=== PATIENT | female | born 1955 | race Two or more races ===

== ENCOUNTER → 2024-03-20 | Outpatient (CLI) | payer OTHER, MEDICAID, SELFPAY ==
--- NOTE | 2024-03-20 14:00 | XR_ITS ---
Examination: Bone densitometry Date and time of exam:March 20, 2024 1354 hours INDICATIONS: Menopause age 48 calcium one year Technique: Lumbar spine and hip total bone mineralization values of an calculated. Peak reference and age match control results have been displayed. Findings: Lumbar spine total bone mineralization is0.992 gm/cm2. This is 0.5 standard deviations below peak reference. This is 1.6 standard deviations above age-matched controls. Hip total bone mineralization is 0.985 gm/cm2 This is 0.2 standard deviations above peak reference. This is 1.6 standard deviations above age-matched controls Impression: There is normal mineralization based on lumbar spine measurements. There is osteopenia based on hip measurements Lumbar mineralization is decreased 3.5% compared with November 18, 2021 Hip mineralization is decreased 3.3% compared with November 18, 2021
== END | disposition home or self-care (01) ==
LOC: CDIM 13:37
PROVIDERS: Referring Provider Family Medicine; Visit Provider Family Medicine
DX: M85.88 Other specified disorders of bone density and structure, other site (principal)
CPT/HCPCS: 77080

== ENCOUNTER → 2024-08-09 | Outpatient (CLI) | payer MEDICARE, SELFPAY ==
--- NOTE | 2024-08-09 08:30 | XR_ITS ---
Examination: Screening digital mammography, bilateral Computer aided detection 3-D breast Tomosynthesis, bilateral Date and time of exam: August 09, 2024 0811 hours Compared to mammograms dating to October 13, 2020 Indication: Screening Technique: Nonmagnified MLO, CC views of the breasts to been obtained, reconstructed from 3-D Tomosynthesis images. R2 computer aided detection program utilized for evaluation of suspicious masses and/or abnormal calcifications. 3-D Tomosynthesis images obtained. Findings: Scattered areas of fibroglandular density. Benign calcifications. No interval suspicious masses Impression: BI-RADS category II: Benign Findings. Recommend 1 year follow-up mammogram.
[2024-08-09 09:26] LABS: Collection Type, Urine Clean Catch
[2024-08-09 10:07] LABS: Basophils # (Auto) 0.1 Thou/mm3 (0.0-0.2); Basophils % (Auto) 1 % (0-2.5); Eosinophils # (Auto) 0.1 Thou/mm3 (0.0-0.5); Eosinophils % (Auto) 2 % (0-10); Hematocrit 41.3 % (36.0-46.0); Hemoglobin 13.7 g/dL (12.0-16.0); Immature Granulocytes % (Auto) 1 % (0-0); Immature Granulocytes Auto 0.05 Thou/mm3 (0.00-0.00); Lymphocytes # (Auto) 2.6 Thou/mm3 (1.0-4.8); Lymphocytes % (Auto) 41 % (10-50); Mean Corpuscular HGB Conc 33.2 g/dl (31.0-37.0); Mean Corpuscular Hemoglobin 29.9 pg (25.0-35.0); Mean Corpuscular Volume 90 fL (80-100); Monocytes # (Auto) 0.5 Thou/mm3 (0.0-0.8); Monocytes % (Auto) 8 % (0-12); Neutrophils % (Auto) 47 % (37-80); Nucleated Red Blood Cell % 0 /100 WBC (0); Platelet Count 230 Thou/mm3 (140-440); Red Blood Count 4.58 Miln/mm3 (4.00-5.20); White Blood Count 6.3 Thou/mm3 (3.6-11.0)
[2024-08-09 10:08] LABS: Bilirubin,Urine Negative (Negative); Blood,Urine 1+ (Negative); Clarity,Urine Clear (Clear/Hazy); Color,Urine Lt-Yellow (Lt Yel-Yel); Glucose, Urine Negative (Negative); Ketones,Urine Negative (Negative); Leukocyte Esterase,Urine Positive (Negative); Nitrite,Urine Negative (Negative); Protein,Urine Negative (Neg - Trace); RBC,Urine 3 /hpf (0-3); Specific Gravity,Urine 1.018 (1.001-1.035); Squamous Epithelial Cell,Urine 2 /hpf (0-5); Urobilinogen,Urine Negative mg/dL (0.0-1.0); WBC,Urine 24 /hpf (0-5)
[2024-08-09 10:36] LABS: Alanine Aminotransferase 17 U/L (10-49); Albumin, Serum 4.4 gm/dL (3.4-4.8); Albumin/Globulin Ratio 1.3 (1.2-2.2); Alkaline Phosphatase 89 U/L (46-116); Anion Gap 7 (7-16); Aspartate Amino Transferase 22 U/L (0-34); BUN/Creatinine Ratio 19 Ratio (12-20); Bilirubin,Total 0.6 mg/dL (0.3-1.2); Blood Urea Nitrogen 23 mg/dL (9-23); Calcium 9.6 mg/dL (8.3-10.6); Calcium (Corrected) 9.6 mg/dL (8.5-10.1); Carbon Dioxide 27.8 mMol/L (20.0-31.0); Cardiac Risk Estimate 5.9 RATIO (3.7-5.6); Chloride 106 mMol/L (98-107); Cholesterol 211 mg/dL (132-200); Creatinine (Component) 1.2 mg/dL (0.6-1.3); Globulin 3.3 gm/dL (2.3-3.5); Glucose 111 mg/dL (74-106); HDL Cholesterol 36 mg/dL (40-60); LDL Cholesterol,Calculated 124 mg/dL (0-130); Osmolality,Calculated 285 (275-295); Sodium 141 mMol/L (136-145); Thyroid Stimulating Hormone 2.32 uIU/mL (0.55-4.78); Total Protein 7.7 gm/dL (5.7-8.2); Triglycerides 257 mg/dL (30-150); eGFR 49 See Note
== END | disposition home or self-care (01) ==
LOC: CDIM 08:02 → COPL 08:19
PROVIDERS: Referring Provider Family Medicine; Visit Provider Radiology Diagnostic Radiology
DX: Z12.31 Encounter for screening mammogram for malignant neoplasm of breast (principal); R92.8 Other abnormal and inconclusive findings on diagnostic imaging of breast; R92.323 Mammographic fibroglandular density, bilateral breasts; Z00.00 Encounter for general adult medical examination without abnormal findings; E78.2 Mixed hyperlipidemia; I10 Essential (primary) hypertension
CPT/HCPCS: 36415; 77063; 77067; 80053; 80061; 81001; 84443; 85025

== ENCOUNTER 2024-09-19 10:34 | Emergency (ER) | payer OTHER, SELFPAY ==
[2024-09-19 10:35] VITALS: BMI 25.9
[2024-09-19 10:43] VITALS: BP 138/81; PULSE 86; RESP 16; TEMP 36.7; O2SAT 97
--- NOTE | 2024-09-19 10:53 | XR_ITS ---
Examination: Knee, right , 3 views Technique: Knee AP, lateral, oblique 3 views Date and time of exam: September 20, 2019 5:11 AM INDICATIONS: Sudden onset knee pain beginning one month ago. FINDINGS: Moderate osteopenia Moderate knee effusion No fracture Mild narrowing medial patellofemoral joints IMPRESSION: Mild narrowing medial patellofemoral joints
[2024-09-19] MEDS: KETOROLAC INJ 60 MG/2 ML VIAL 30 MG IM (10:57)
[2024-09-19] MEDS: ACETAMINOPHEN 325 MG TABLET 650 MG PO (10:58)
--- NOTE | 2024-09-19 11:08 | PD.EDLOWEX ---
Lower Extremity Injury RME/HPI General Chief Complaint: Extremity Injury, Lower Stated Complaint: R) KNEE PAIN X 1 MO Time Seen by Provider: 09/19/24 10:39 Arrival date/time: 09/19/24 10:34 Limitations: language barrier RME / HPI RME / HPI Narrative: 68-year-old female brought in by granddaughter for evaluation of right knee pain x 1 month. She reports sudden onset of pain after holding it in flexion on the couch and stepping offf onto the floor approximately x 4 weeks ago. Since that time she notes persistent pain that is worse with ambulation. She denies fall, head trauma, LOC, blunt trauma, prior knee injury, prior surgery. She reports taking ibuprofen daily with some improvement in her symptoms. Patient denies additional injury. MD complaint: knee injury Type of Injury: unknown Place: home Severity: moderate Exacerbating factors: nothing Other symptoms: none Related Data Home Medications ?Medication ?Instructions ?Recorded ?Confirmed amitriptyline 25 mg tablet 25 mg PO QPM 05/03/21 05/03/21 calcium 600 mg capsule 600 mg PO BID 05/03/21 05/03/21 gemfibrozil 600 mg tablet 600 mg PO BID 05/03/21 05/03/21 lisinopril 5 mg tablet 5 mg PO QDAY 05/03/21 05/03/21 loratadine 10 mg tablet 10 mg PO QDAY 05/03/21 05/03/21 tramadol 50 mg tablet 50 mg PO PRN PRN Pain 05/03/21 05/03/21 Previous Rx's ?Medication ?Instructions ?Recorded ibuprofen 600 mg tablet 600 mg PO Q6H #30 tabs 07/06/22 Allergies Allergy/AdvReac Type Severity Reaction Status Date / Time No Known Allergies Allergy Verified 09/19/24 10:38 Review of Systems Constitutional Constitutional: Denies chills, Denies fever(s), Denies frequent falls and Denies weakness Eyes Eyes: Denies blurry vision and Denies change in vision ENT Ears, Nose, Mouth, and Throat: Denies disequilibrium, Denies dizziness, Denies otalgia, Denies neck pain and Denies vertigo Cardiovascular Cardiovascular: Denies chest pain, Denies dyspnea, Denies leg edema, Denies leg ulcers and Denies lightheadedness Respiratory Respiratory: Denies cough, Denies dyspnea and Denies wheezing Gastrointestinal Gastrointestinal: Denies abdominal pain, Denies nausea and Denies vomiting Genitourinary Genitourinary: Denies dysuria and Denies urinary urgency Musculoskeletal Musculoskeletal: Reports arthralgias (right knee), Denies back pain, Denies deformity, Denies joint swelling, Reports limited range of motion (right knee. ), Denies myalgias, Denies neck pain, Denies numbness, Denies stiffness and Denies tingling Integumentary/Breasts Skin/Breast: Denies changing lesions, Denies lesions and Denies rash Neurologic Neurologic: Denies disequilibrium, Denies dizziness, Denies frequent falls, Denies numbness, Denies radicular pain, Denies tingling, Denies vertigo and Denies weakness Allergic/Immunologic Allergic/Immunologic: Denies wheezing Past Medical History Past Medical History NEUROLOGIC: Negative Neurological Disorders or Seizures CARDIAC: Positive Cardiac Disorders and Hypertension; Negative Congestive Heart Failure RESPIRATORY: Negative Chronic Obstructive Pulmonary Disease (COPD) GASTROINTESTINAL: Positive Gastrointestinal Disorders GENITOURINARY: Negative Genitourinary Disorders or Renal Disease REPRODUCTIVE: Negative Pelvic Inflammatory Disease MUSCULOSKELETAL: Negative Musculoskeletal Disorders ENDOCRINE: Negative Endocrine Disorders, Diabetes Mellitus Type 1 or Diabetes Mellitus Type 2 HEMATOLOGIC: Negative Blood Disorders OTHER HISTORY: Negative Autoimmune Disease, Blood Transfusions, Blood Transfusion Reaction, Anesthesia Reactions or Cancer Social History SMOKING STATUS: Never smoker ED Exam General Limitations: Present language barrier General appearance: Present alert and in no apparent distress Head Head exam: Present atraumatic and normocephalic Eye Eye exam: Present normal appearance, PERRL and EOMI ENT ENT exam: Present normal oropharynx and mucous membranes moist Neck Neck exam: Present normal inspection and full ROM Chest Chest inspection: Present normal inspection and symmetric chest wall rise Respiratory Respiratory exam: Present normal lung sounds bilaterally; Absent respiratory distress Cardiovascular Cardiovascular exam: Present regular rate and +S1 Abdominal Exam Abdominal exam: Present soft; Absent distention Expanded Lower Extremity Exam Upper leg exam: Present normal inspection and full ROM; Absent tenderness or swelling Knee exam: Present normal inspection, full ROM (FROM to passive ambulation. ) and tenderness (anterior aspect right knee. ); Absent swelling, laceration, ecchymosis, deformity, effusion or anterior drawer sign Lower leg exam: Present normal inspection and full ROM; Absent tenderness or swelling Ankle exam: Present normal inspection; Absent full ROM or tenderness Neurovascular/Tendon exam: Present normal capillary refill; Absent pulse deficit Gait: observed and normal Back Exam Back exam: Present normal inspection and full ROM; Absent tenderness, paraspinal tenderness or vertebral tenderness Neurological Exam Neurological exam: Present alert and normal gait Psychiatric Psychiatric exam: Present normal affect and normal mood Skin Skin exam: Present warm and dry Course Quality Measures none Orders Category Date Time Status XR knee RT 3V Stat Exams 09/19/24 10:53 Completed Acetaminophen Tab [Tylenol Tab] Med 09/19/24 10:53 Discontinued 650 mg PO X1 ONE Ketorolac Inj [Toradol Inj] Med 09/19/24 10:53 Discontinued 30 mg IM X1 ONE Vital Signs Vital signs: Vital Signs Temperature 98.1 F 09/19/24 10:43 Pulse Rate 86 09/19/24 10:43 Respiratory Rate 16 09/19/24 10:43 Blood Pressure 138/81 H 09/19/24 10:43 Pulse Oximetry (%) 97 09/19/24 10:43 Oxygen Delivery Method Room Air 09/19/24 10:43 Pulse ox 97% on room air, within normal limits. Extremity Injury, Lower MDM Narrative MDM Narrative:: 68-year-old female presenting for evaluation of right knee pain x 1 month. Atraumatic injury. No acute fracture or dislocation on x-ray today. Patient ambulating without difficulty in the department. More likely ligamentous injury for which patient will likely need to follow-up outpatient for further evaluation and treatment. Ultimately patient was discharged with plan to follow-up with primary care with possible PT referral and outpatient MRI within the next week. Return precautions provided. Patient stable at time of discharge. Patient data External records reviewed:: [facility] previous records Clinical information provided by:: patient and family Social determinants that could affect healthcare access:: none Patient has the following chronic illnesses:: Hypertension. How is presenting disease/condition affected by chronic disease/condition?: uneffected by Evaluation data The following diagnostics were reviewed and interpreted by me:: radiology exam(s) Lab and/or radiology exams considered but not ordered:: X-ray right knee ordered. Interpretation Summary: X-ray right knee with no acute fracture or dislocation. Medications / Prescriptions Medications or Prescriptions considered but not ordered:: Rx given. Medication administrations:: Medication Administration History Discontinued Medications Acetaminophen (Acetaminophen 325 Mg Tablet) 650 mg PO X1 ONE Stop: 09/19/24 10:54 Last Admin: 09/19/24 10:58 Dose: 650 mg Documented By: JESE Ketorolac Tromethamine (Ketorolac Inj 60 Mg/2 Ml Vial) 30 mg IM X1 ONE Stop: 09/19/24 10:54 Last Admin: 09/19/24 10:57 Dose: 30 mg Documented By: JESE Rx given. Consultations Consultation(s) initiated? (list below): No Diagnosis Extremity Injury, Lower Differential Diagnosis: acute internal derangement of knee, ankle fracture and other (Ligamentous injury right knee.) Most likely diagnosis given after review of the tests above:: Right knee strain. Admission Indicated Admission indicated?: not indicated Admission Request Was there a request for admission?: No Disposition Plan Disposition Plan: Discharge Discharge Attestation Discharge Attestation: The patient and all family members were given an opportunity to ask questions and understood the discharge instructions. Discharge instructions specifically effects, indications for sooner follow up or return to the emergency department, and the expected course of current diagnosis. Patient condition: Stable Discharge Plan Plan Patient Disposition: HOME (Self Care) Discharge Disposition comment: stable Prescriptions/Referrals Prescriptions/Med Rec: No Action calcium 600 mg Capsule 600 mg PO BID tramadol 50 mg tablet 50 mg PO PRN PRN (Reason: Pain) amitriptyline 25 mg Tablet 25 mg PO QPM gemfibrozil 600 mg Tablet 600 mg PO BID lisinopril 5 mg tablet 5 mg PO QDAY loratadine 10 mg tablet 10 mg PO QDAY ibuprofen 600 mg tablet 600 mg PO Q6H Qty: 30 0RF Referrals: Efrem Burt MD [Primary Care Provider] - In 1 week Problem List Clinical Impression: Knee pain, right Impression comment: Follow-up with primary care within the next week for reevaluation of right knee pain. Continue to use Tylenol or ibuprofen every 6 hours as needed for pain. Return to the ED if your symptoms worsen or change. Xray findings today: Mild narrowing medial patellofemoral joints Patient/Caregiver Discharge Instructions Education Materials: ED Knee Pain of Uncertain Cause Print Language: Romanian Stand Alone Forms: Camila Award Info., Patient Portal Info Letter PA/MANUEL Supervising Physician MICHELLE/MANUEL Supervising Physician: Dr. Soto
== END 2024-09-19 12:06 | disposition home or self-care (01) ==
PROVIDERS: Emergency Provider Emergency Medicine; PCP Family Medicine
DX: M25.561 Pain in right knee (principal)
CPT/HCPCS: 73562; 96372; 99283; J1885; A9270

== ENCOUNTER 2024-10-11 08:57 | Emergency (ER) | payer OTHER, SELFPAY ==
[2024-10-11 09:13] VITALS: BP 168/84; PULSE 92; RESP 18; TEMP 37.1; O2SAT 97; BMI 26.8
--- NOTE | 2024-10-11 09:40 | PD.EDLOWEX ---
Lower Extremity Injury RME/HPI General Chief Complaint: Extremity Injury, Lower Stated Complaint: Right knee pain X 1 month Time Seen by Provider: 10/11/24 09:00 Arrival date/time: 10/11/24 08:57 This is a 68-year-old female that comes into the emergency room with complaints of chronic knee pain for about a month now. Patient is already seen her primary provider. Patient has an MRI scheduled in 2 weeks. Patient wanted an MRI sooner. Patient states that she has not been taking any medication at home for pain. Patient states it hurts to walk especially long periods of time. Patient denies any trauma. Patient denies any recent surgery. Related Data Home Medications ?Medication ?Instructions ?Recorded ?Confirmed amitriptyline 25 mg tablet 25 mg PO QPM 05/03/21 05/03/21 calcium 600 mg capsule 600 mg PO BID 05/03/21 05/03/21 gemfibrozil 600 mg tablet 600 mg PO BID 05/03/21 05/03/21 lisinopril 5 mg tablet 5 mg PO QDAY 05/03/21 05/03/21 loratadine 10 mg tablet 10 mg PO QDAY 05/03/21 05/03/21 tramadol 50 mg tablet 50 mg PO PRN PRN Pain 05/03/21 05/03/21 Previous Rx's ?Medication ?Instructions ?Recorded ibuprofen 600 mg tablet 600 mg PO Q6H #30 tabs 07/06/22 ibuprofen 600 mg tablet 600 mg PO QID PRN pain #14 tabs 10/11/24 Allergies Allergy/AdvReac Type Severity Reaction Status Date / Time No Known Allergies Allergy Verified 10/11/24 09:02 Course Orders Category Date Time Status Acetaminophen Tab [Tylenol ES Tab] Med 10/11/24 09:40 Once 1,000 mg PO X1 ONE Ibuprofen Tab [Motrin Tab] Med 10/11/24 09:40 Once 800 mg PO X1 ONE Vital Signs Vital signs: Vital Signs Temperature 98.7 F 10/11/24 09:13 Pulse Rate 92 10/11/24 09:13 Respiratory Rate 18 10/11/24 09:13 Blood Pressure 168/84 H 10/11/24 09:13 Pulse Oximetry (%) 97 10/11/24 09:13 Oxygen Delivery Method Room Air 10/11/24 09:13 Extremity Injury, Lower MDM Narrative MDM Narrative:: I spoke to patient at length. I explained to her that we do not do routine MRIs in the emergency room. I explained to her that she would need to wait for her appointment in 2 weeks. I told her I would give her some ibuprofen and some Tylenol for pain. I told her to ice and elevate when she is not walking. Patient is already being followed with her primary provider for the same problem. Patient told to come back to the emergency room if symptoms change or worsen. Discharge Plan Plan Patient Disposition: HOME (Self Care) Patient condition on transfer: Stable Prescriptions/Referrals Prescriptions/Med Rec: New ibuprofen 600 mg tablet 600 mg PO QID PRN (Reason: pain) Qty: 14 0RF No Action calcium 600 mg Capsule 600 mg PO BID tramadol 50 mg tablet 50 mg PO PRN PRN (Reason: Pain) amitriptyline 25 mg Tablet 25 mg PO QPM gemfibrozil 600 mg Tablet 600 mg PO BID lisinopril 5 mg tablet 5 mg PO QDAY loratadine 10 mg tablet 10 mg PO QDAY ibuprofen 600 mg tablet 600 mg PO Q6H Qty: 30 0RF Problem List Clinical Impression: Chronic knee pain Patient/Caregiver Discharge Instructions Discharge Activity: activity as tolerated Education Materials: ED Chronic Pain, ED RICE Additional Instructions: Jadyn un gary con constantino medico de cabecera en las proximas 24-48 horas. Regrese a la antonieta de emergencias si hay evidencia de que los signos o sintomas empeoran. Print Language: Montserratian Stand Alone Forms: Camila Award Info., Patient Portal Info Letter PA/INCIDENT RESPONSE CONSULTANT Supervising Physician PA/MANUEL Supervising Physician: greg
[2024-10-11] MEDS: IBUPROFEN TAB 400 MG TABLET 800 MG PO (09:56)
[2024-10-11] MEDS: ACETAMINOPHEN 500 MG TABLET 1000 MG PO (09:56)
== END 2024-10-11 09:59 | disposition home or self-care (01) ==
LOC: SERX 10:00
PROVIDERS: Emergency Provider Family Medicine; PCP Family Medicine
DX: M25.561 Pain in right knee (principal); G89.29 Other chronic pain
CPT/HCPCS: 99282; A9270

== ENCOUNTER → 2024-11-29 | Outpatient (CLI) | payer MEDICARE, MEDICAID, SELFPAY ==
--- NOTE | 2024-11-29 13:00 | XR_ITS ---
Exam: MRI knee without contrast, right Date and time of exam: November 29, 2024 12:58 PM INDICATIONS: Anterior posterior knee pain and burning sensation instability leg swelling 5 months Technique: Multiple axial, coronal, and sagittal sections on the knee have been obtained. T2-Weighted sagittal, fat-suppressed images, TR 3,500, TE 62, T2 weighted coronal fat-saturated images, TR 3,500, TE 62 Proton density sagittal sections, TR 1800, TE 31. T-1 weighted coronal images, TR 524, TE 13.0 Findings: Medial meniscus anterior horn intact. Medial meniscus, body intact. Posterior horn medial meniscus intact. Lateral meniscus anterior horn horizontal linear tear communicating superior articular surface, sagittal image 18 Lateral meniscus, body horizontal linear tear Posterior horn lateral meniscus is intact Anterior cruciate ligament appears intact. Posterior cruciate ligament appears intact. Knee effusion is moderate. Quadriceps and patellar tendons appear intact. There is no evidence of tendinosis. Inflammatory change or fracture of Hoffa's fat pad is not seen. Medial patellar facet demonstrates moderate thinning. Lateral patellar facet cartilage demonstrates moderate thinning. Trochlear cartilage demonstrates moderate thinning. Marrow signal adequate. Medial collateral ligament appears intact. No meniscocapsular separation is seen. Illiotibial band and fibular collateral ligament are intact. Biceps femoris tendons appear intact. Medial femoral condylar articular cartilage demonstrates moderate thinning. Lateral femoral condylar articular cartilage demonstratesmoderate thinning. Tibial plateau cartilage demonstrates moderate thinning. Impression: Horizontal linear tears anterior horn and body lateral meniscus
== END | disposition home or self-care (01) ==
PROVIDERS: PCP Family Medicine; Referring Provider Orthopaedic Surgery; Visit Provider Orthopaedic Surgery
DX: S83.231A Complex tear of medial meniscus, current injury, right knee, initial encounter (principal); X58.XXXA Exposure to other specified factors, initial encounter
CPT/HCPCS: 73721

== ENCOUNTER 2025-02-04 09:15 | Outpatient (AMB) | payer MEDICARE, MEDICAID, SELFPAY ==
--- NOTE | 2025-02-04 09:42 | PD.ORTHCLVIS ---
Vital signs 02/04/25 09:48 Height 1.57 m Height Method Measured Weight 64.127 kg Weight Measurement Method Standing Scale BMI 25.8 BP 163/93 H Blood Pressure Source Automatic Cuff Blood Pressure Location Left Upper Arm Position Sitting Respiration 18 Pulse 87 Pulse Source Monitor Temp 97.4 F Temp Source Temporal Artery Scan Pulse Oximetry (%) 96 Oxygen Delivery Method Room Air Med/Allergies Allergies & Medications Allergies No Known Allergies Allergy (Verified 02/04/25 09:49) Medication Reconciliation amitriptyline 25 mg tablet 25 mg PO QPM 05/03/21 [History Confirmed 02/04/25] calcium 600 mg capsule 600 mg PO BID 05/03/21 [History Confirmed 02/04/25] gemfibrozil 600 mg tablet 600 mg PO BID 05/03/21 [History Confirmed 02/04/25] lisinopril 5 mg tablet 5 mg PO QDAY 05/03/21 [History Confirmed 02/04/25] loratadine 10 mg tablet 10 mg PO QDAY 05/03/21 [History Confirmed 02/04/25] tramadol 50 mg tablet 50 mg PO PRN PRN Pain 05/03/21 [History Confirmed 02/04/25] ibuprofen 600 mg tablet 600 mg PO Q6H #30 tabs 07/06/22 [Rx Confirmed 02/04/25] ibuprofen 600 mg tablet 600 mg PO QID PRN pain #14 tabs 10/11/24 [Rx Confirmed 02/04/25] Exam Exam Breathing is nonlabored. Patient has a normal mood and affect. Bilateral extremities were evaluated and demonstrates sensation intact to light touch. Palpable pedal pulses are present. No significant edema is present. Bilateral hips were examined. The patient has no pain with log roll of the hips. Internal rotation to 30 degrees and external rotation to 30 degrees is painless. Negative FADIR. Left knee was examined today. The left knee is in reasonable alignment. Range of motion from 0-120 degrees. Knee is stable to varus and valgus as well as AP translation with <5mm. Patient has a negative McMurrays. There is no pain with patellofemoral compression and no crepitus noted. The knee is nontender to palpation. The right knee was also examined. The right knee is in varus alignment. Range of motion from 0-115 degrees. Knee is stable to varus and valgus as well as AP translation with <5mm. Patient has a negative McMurrays. There is no pain with patellofemoral compression and no crepitus noted. The knee is tender to palpation medially. MRI demonstrates a degenerative tear. X-rays demonstrate mild arthritis Assessment and Plan Problem List (1) Arthritis of knee, right: Status: Acute Plan: ASSESSMENT AND PLAN 1. Right knee pain: Experiencing right knee pain for 6 months, with intermittent relief from ibuprofen. Imaging reveals a meniscus tear and age-related wear and tear. Discussed treatment options including medications, injections, physical therapy, and a home exercise program. Patient expressed interest in trying an injection. Authorization for the injection will be checked with insurance. A home exercise program will also be provided. We will plan for a injection at the next visit and start with a home exercise program Advanced Care Planning Discussion Advance care planning discussed with:: patient Office Procedures GNS Level of Care Nursing/Assessment Patient Status: Initial/New Patient Nursing Assessment/Reassesment: Medication Reconciliation, Update PMH in EMR and Vital Signs Coordination of Care: Complex Care and Chronic Disease 1-5, Education Complex Pt/Fam, Consent,records obtained, informed consent, Lab and Imaging orders, Results/Orders obtained and Staff clarify orders Special Needs: Language special needs New Patient Charge New Patient Point Assignment: 1109 New Patient Point Charge: SEA[employer] SPECIALIST Level 3 ([id number]) MA Intake Visit Data Collection New Patient or Established: New Patient (never been to [facility]) Reason for Visit:: RIGHT KNEE OSTEOARTHRITIS Seen by Clinical Staff ONLY (RN/MA): No Physicist [employer] Required: Yes PCP or OBGYN visit in last 3 months: Yes Hx Now: No Do You Feel Safe at Home: Yes Authorities Contacted: N/A Questionairres Past Medical History Past Medical History Have you ever been diagnosed with any of the following: Neurological Problems Seizures: No Cardiology Problems Congestive Heart Failure: No Hypertension: Yes Respiratory Problems Chronic Obstructive Pulmonary Disease (COPD): No Genital/Urinary Problems Renal Disease: No Reproductive Problems Pelvic Inflammatory Disease: No Endocrine Problems Diabetes Mellitus Type 1: No Diabetes Mellitus Type 2: No Other Problems Blood Transfusions: No Blood Transfusion Reaction: No Anesthesia Reactions: No Cancer: No Subjective Visit Visit for: new patient and knee Immunization / Flu Flu Vaccine in the Last 12 Months: Yes Flu Vaccine Exclusion Criteria: Already Received History of Present Illness Chief complaint: RIGHT KNEE OSTEOARTHRITIS HISTORY OF PRESENT ILLNESS I, Mraco Jai, have obtained verbal consent from the patient, to be recorded during this encounter which may include, but not limited to, medical history, examination, treatment plans, and relevant health information.? Patient was informed that recording will be read and reviewed by myself before inclusion in the medical chart. The patient is a 69-year-old female who presents today for evaluation of her right knee. She has been experiencing right knee pain for 6 months. She has not tried any injections or physical therapy. She has tried ibuprofen, which helps at times. The pain is intermittent. She reports that her right knee pain has shown some improvement. She has not undergone any weight-bearing x-rays or MRI scans. She is not currently on any medication. Personal History Occupation: RETIRED Red flag PMH: none BMI Counceling provided: No Pain Pain level (0-10): 8 Pain location: anterior and posterior Pain quality: aching and burning Pain timing: increases with activity and stairs Associated signs & symptoms: none Ambulatory data Ambulatory device: none Treatments Improvement with previous injections: No Improvement with PT: No Improvement with NSAIDS: yes (IBUPROFEN) Review of Systems Review of Systems: All systems negative unless otherwise noted in HPI.
[2025-02-04 09:48] VITALS: BP 163/93; PULSE 87; RESP 18; TEMP 36.3; O2SAT 96; BMI 25.8
--- NOTE | 2025-02-04 10:05 | XR_ITS ---
EXAMINATION: Bilateral AP knees standing single view Right knee. Lateral axial 3 views TECHNIQUE: Bilateral AP knees standing single view Right knee PA standing flexion single view, lateral right knee, axial right knee 3 views total 4 views Date and time: February 04, 2025, 1022 hours INDICATION: Right knee pain 6 months. FINDINGS: Moderate osteopenia Moderate narrowing medial joint space right knee Moderate osteoarthritis patellofemoral joint Moderate narrowing medial joint space and lateral joint space left knee Small knee effusion But no patellar dislocation IMPRESSION: Moderate narrowing medial joint space right knee Moderate osteoarthritis right patellofemoral joint Moderate narrowing medial joint space left knee Moderate narrowing lateral joint space left knee
== END 2025-02-04 10:15 | disposition home or self-care (01) ==
LOC: HODSRG 09:15
PROVIDERS: PCP Family Medicine; Referring Provider Family Medicine; Supervising Provider Orthopaedic Surgery Adult Reconstructive Orthopaedic Surgery; Visit Provider Orthopaedic Surgery Adult Reconstructive Orthopaedic Surgery
DX: M25.561 Pain in right knee (principal); M17.11 Unilateral primary osteoarthritis, right knee; M25.862 Other specified joint disorders, left knee; I10 Essential (primary) hypertension; S83.209A Unspecified tear of unspecified meniscus, current injury, unspecified knee, initial encounter; X58.XXXA Exposure to other specified factors, initial encounter
CPT/HCPCS: 73564; 99203; G0463

== ENCOUNTER 2025-02-06 10:29 | Outpatient (AMB) | payer MEDICARE, MEDICAID, SELFPAY ==
--- NOTE | 2025-02-06 10:55 | PD.ORTHCLVIS ---
Vital signs 02/06/25 10:57 Height 1.57 m Height Method Stated Weight 63.134 kg Weight Measurement Method Standing Scale BMI 25.6 BP 165/84 H Blood Pressure Source Automatic Cuff Blood Pressure Location Left Upper Arm Position Sitting Respiration 18 Pulse 89 Pulse Source Monitor Temp 97.0 F Temp Source Temporal Artery Scan Pulse Oximetry (%) 97 Oxygen Delivery Method Room Air Med/Allergies Allergies & Medications Allergies No Known Allergies Allergy (Verified 02/06/25 10:57) Medication Reconciliation amitriptyline 25 mg tablet 25 mg PO QPM 05/03/21 [History Confirmed 02/06/25] calcium 600 mg capsule 600 mg PO BID 05/03/21 [History Confirmed 02/06/25] gemfibrozil 600 mg tablet 600 mg PO BID 05/03/21 [History Confirmed 02/06/25] lisinopril 5 mg tablet 5 mg PO QDAY 05/03/21 [History Confirmed 02/06/25] loratadine 10 mg tablet 10 mg PO QDAY 05/03/21 [History Confirmed 02/06/25] tramadol 50 mg tablet 50 mg PO PRN PRN Pain 05/03/21 [History Confirmed 02/06/25] ibuprofen 600 mg tablet 600 mg PO Q6H #30 tabs 07/06/22 [Rx Confirmed 02/06/25] ibuprofen 600 mg tablet 600 mg PO QID PRN pain #14 tabs 10/11/24 [Rx Confirmed 02/06/25] Exam Exam Breathing is nonlabored. Patient has a normal mood and affect. Bilateral extremities were evaluated and demonstrates sensation intact to light touch. Palpable pedal pulses are present. No significant edema is present. Bilateral hips were examined. The patient has no pain with log roll of the hips. Internal rotation to 30 degrees and external rotation to 30 degrees is painless. Negative FADIR. Left knee was examined today. The left knee is in reasonable alignment. Range of motion from 0-120 degrees. Knee is stable to varus and valgus as well as AP translation with <5mm. Patient has a negative McMurrays. There is no pain with patellofemoral compression and no crepitus noted. The knee is nontender to palpation. The right knee was also examined. The right knee is in varus alignment. Range of motion from 0-115 degrees. Knee is stable to varus and valgus as well as AP translation with <5mm. Patient has a negative McMurrays. There is no pain with patellofemoral compression and no crepitus noted. The knee is tender to palpation medially. MRI demonstrates a degenerative tear. X-rays demonstrate mild arthritis Assessment and Plan Problem List (1) Arthritis of knee, right: Status: Acute Plan: ASSESSMENT AND PLAN 1. Right knee pain: Experiencing right knee pain for 6 months, with intermittent relief from ibuprofen. Imaging reveals a meniscus tear and age-related wear and tear. Discussed treatment options including medications, injections, physical therapy, and a home exercise program. Patient expressed interest in trying an injection. Recommend knee cortisone injection as patient would like to proceed with conservative treatment at this time. The risks and benefits of the procedure were reviewed with the patient and patient gave verbal consent to continue with the procedure. Procedure: performed by Dr. Vergara Using sterile technique the Right knee was thoroughly prepped with alcohol, and approximately 1 cc of Depo-Medrol 80mg/mL and 4 cc of 0.2% ropivacaine was injected without resistance into the medial tibial femoral joint space. The patient tolerated the procedure. Advanced Care Planning Discussion Advance care planning discussed with:: patient Office Procedures GNS Level of Care Nursing/Assessment Patient Status: Established Patient Nursing Assessment/Reassesment: Medication Reconciliation, Update PMH in EMR and Vital Signs Coordination of Care: Complex Care and Chronic Disease 1-5, Education Complex Pt/Fam, Consent,records obtained, informed consent, Results/Orders obtained and Staff clarify orders Special Needs: Language special needs Established Patient Charge Established Patient Point Assignment: 95 Established Patient Point Charge: EP Level 3 (80-115) Surgical Proc/IM SQ injection Minor Surgical Procedure: Yes (RIGHT KNEE INJECTION) MA Intake Visit Data Collection New Patient or Established: Established Patient (seen at [facility] within 3 years) Reason for Visit:: RIGHT KNEE OA INJ Seen by Clinical Staff ONLY (RN/MA): 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 PCP or OBGYN visit in last 3 months: Yes Hx Now: No Do You Feel Safe at Home: Yes Authorities Contacted: N/A Questionairres Past Medical History Past Medical History Have you ever been diagnosed with any of the following: Neurological Problems Seizures: No Cardiology Problems Congestive Heart Failure: No Hypertension: Yes Respiratory Problems Chronic Obstructive Pulmonary Disease (COPD): No Genital/Urinary Problems Renal Disease: No Reproductive Problems Pelvic Inflammatory Disease: No Endocrine Problems Diabetes Mellitus Type 1: No Diabetes Mellitus Type 2: No Other Problems Blood Transfusions: No Blood Transfusion Reaction: No Anesthesia Reactions: No Cancer: No Subjective Visit Visit for: follow up visit, knee (RIGHT), x-rays (RESULTS) and injections Immunization / Flu Flu Vaccine in the Last 12 Months: Yes Flu Vaccine Exclusion Criteria: Already Received History of Present Illness Chief complaint: RIGHT KNEE OA INJECTION HISTORY OF PRESENT ILLNESS I, Marco Vergara, have obtained verbal consent from the patient, to be recorded during this encounter which may include, but not limited to, medical history, examination, treatment plans, and relevant health information.? Patient was informed that recording will be read and reviewed by myself before inclusion in the medical chart. The patient is a 69-year-old female who presents today for evaluation of her right knee. She has been experiencing right knee pain for 6 months. She has not tried any injections or physical therapy. She has tried ibuprofen, which helps at times. The pain is intermittent. She reports that her right knee pain has shown some improvement. She would like an injection today Personal History Occupation: RETIRED Red flag PMH: none BMI Counceling provided: No Pain Pain level (0-10): 8 Pain location: anterior and posterior Pain quality: aching and burning Pain timing: increases with activity and stairs Associated signs & symptoms: none Ambulatory data Ambulatory device: none Treatments Improvement with previous injections: No Improvement with PT: No Improvement with NSAIDS: yes (IBUPROFEN) Review of Systems Review of Systems: All systems negative unless otherwise noted in HPI.
[2025-02-06 10:57] VITALS: BP 165/84; PULSE 89; RESP 18; TEMP 36.1; O2SAT 97; BMI 25.6
== END 2025-02-06 11:05 | disposition home or self-care (01) ==
LOC: HODSRG 10:29
PROVIDERS: PCP Family Medicine; Referring Provider Family Medicine; Supervising Provider Orthopaedic Surgery Adult Reconstructive Orthopaedic Surgery; Visit Provider Orthopaedic Surgery Adult Reconstructive Orthopaedic Surgery
DX: M25.561 Pain in right knee (principal); M17.11 Unilateral primary osteoarthritis, right knee; I10 Essential (primary) hypertension
CPT/HCPCS: 20610; 99213; J1010; J2795; G0463

== ENCOUNTER → 2025-03-31 | Outpatient (CLI) | payer MEDICARE, MEDICAID, SELFPAY ==
[2025-03-31 11:40] LABS: Alanine Aminotransferase 20 U/L (10-49); Albumin, Serum 5.0 gm/dL (3.4-4.8); Albumin/Globulin Ratio 1.5 (1.2-2.2); Alkaline Phosphatase 93 U/L (46-116); Anion Gap 10 (7-16); Aspartate Amino Transferase 30 U/L (0-34); BUN/Creatinine Ratio 21 Ratio (12-20); Bilirubin,Total 0.5 mg/dL (0.3-1.2); Blood Urea Nitrogen 21 mg/dL (9-23); Calcium 10.3 mg/dL (8.3-10.6); Calcium (Corrected) 10.3 mg/dL (8.5-10.1); Carbon Dioxide 27.1 mMol/L (20.0-31.0); Cardiac Risk Estimate 2.9 RATIO (3.7-5.6); Chloride 107 mMol/L (98-107); Cholesterol 118 mg/dL (132-200); Creatinine (Component) 1.0 mg/dL (0.6-1.3); Globulin 3.3 gm/dL (2.3-3.5); Glucose 118 mg/dL (74-106); HDL Cholesterol 41 mg/dL (40-60); LDL Cholesterol,Calculated 61 mg/dL (0-130); Osmolality,Calculated 290 (275-295); Potassium 4.7 mMol/L (3.4-5.1); Sodium 144 mMol/L (136-145); Total Protein 8.3 gm/dL (5.7-8.2); Triglycerides 78 mg/dL (30-150); eGFR > 60 See Note
== END | disposition home or self-care (01) ==
LOC: COPL 09:01
PROVIDERS: PCP Family Medicine; Referring Provider Family Medicine; Visit Provider Family Medicine
DX: E78.2 Mixed hyperlipidemia (principal); I10 Essential (primary) hypertension
CPT/HCPCS: 36415; 80053; 80061